=== PATIENT | female | born 1930 | race Caucasian/White ===

== ENCOUNTER 2017-01-03 06:00 | Day surgery (SDC) | payer BC ==
[2016-12-28 10:52] LABS: BASOPHILS 0.5 %; BASOPHILS ABSOLUTE 0.03 10/3/uL (0.0-0.16); EOSINOPHILS 1.1 %; EOSINOPHILS ABSOLUTE 0.06 10/3/uL (0.0-0.53); HEMATOCRIT 39.9 % (36.0-48.0); HEMOGLOBIN 12.9 g/dL (12.0-16.0); IMMATURE GRANULOCYTES 0.2 %; IMMATURE GRANULOCYTES ABSOLUTE 0.01 10/3/uL (0.0-0.11); LYMPHOCYTES 28.1 %; LYMPHOCYTES ABSOLUTE 1.59 10/3/uL (0.67-4.30); MEAN CORPUS HGB CONC 32.3 g/dL (32.0-36.0); MEAN CORPUSCULAR HEMOGLOB 30.4 pg (26.0-34.0); MEAN PLATELET VOLUME 10.8 fL (9.2-13.0); MONOCYTES 9.7 %; MONOCYTES ABSOLUTE 0.55 10/3/uL (0.21-1.20); NEUTROPHILS 60.4 %; NEUTROPHILS ABSOLUTE 3.41 10/3/uL (2.02-8.40); PLATELET COUNT 177 10/3/uL (150-400); RBC DISTRIBUTION WIDTH 14.6 % (12.0-16.0); RED CELL COUNT 4.25 10/6/uL (4.0-5.6); WHITE BLOOD CELLS 5.7 10/3/uL (4.5-10.5)
[2016-12-28 10:53] LABS: MANUAL DIFF NO %; MEAN CORPUSCULAR VOLUME 93.9 fL (80-100)
[2016-12-28 11:05] LABS: BUN (BLOOD UREA NITROGEN) 21 MG/DL (6-23); CHLORIDE, SERUM 105 MMOL/L (96-112); CO2 (CARBON DIOXIDE) 28 MMOL/L (24-34); CREATININE 1.06 MG/DL (0.55-1.02); GFR AFRICAN AMERICAN 56 ML/MIN (>=60); GFR NON AFRICAN AMERICAN 48 ML/MIN (>=60); GLUCOSE, SERUM 87 MG/DL (60-99); POTASSIUM, SERUM 4.3 MMOL/L (3.5-5.3); SODIUM, SERUM 139 MMOL/L (135-148)
--- NOTE | ~2017-01-03 | OP ---
Record Of [facility] [address] [facility] [place] [address] NAME: ALEX HILL : 34 STATUS : [facility]#: [id number] AGE: 86 ADM/REG DATE : 01/03/17 MR#: [id number] REPORT SERV DATE: 01/03/17 DICTATED BY: RONALDO PELLETIER DATE: 01/03/17 REPORT STATUS : Draft TRANSCRIBED BY: MODL DATE: 01/03/17 DATE OF PROCEDURE: 01/03/2017 PREOPERATIVE DIAGNOSIS: Postmenopausal bleeding. 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 SURGEON: Ronaldo ePlletier MD. PROCEDURE: Hysteroscopy, dilation and curettage with endocervical curettings. CPT code 28523. ANESTHESIA: General. EBL: 10 mL. DRAINS: Quevedo. FINDINGS: Neoplastic process noted in the lower uterine segment consistent with probable uterine cancer. The endocervical canal was visibly normal by endoscopy. PATHOLOGY: Endometrial curettings, endocervical curettings. COMPLICATIONS: None. POSTOPERATIVE PLAN: Extubated to PACU. PROCEDURE IN DETAIL: After informed consent was signed, the patient was taken to the operating room and placed in dorsal supine position where adequate general anesthesia was administered. She was then placed in dorsal lithotomy position in Uvaldo stirrups and prepped and draped in usual fashion, and a Quevedo catheter was placed. The uterus was sounded, hysteroscope was then placed through the endocervical canal and the uterus distended with appropriate media. Thickened endometrial tissue was noted throughout the lower uterine segment consistent with a neoplastic process. The hysteroscope was then removed and directed. Endometrial curettings were then performed with copious amounts of tissue being removed. The tissue was consistent with malignancy. Excellent hemostasis was noted. The hysteroscope was then placed back into the endocervix, and the endocervix was then again visualized and was found to be without gross evidence of disease. A Kevorkian curette was then used to perform endocervical curettings. The tenaculum was removed. Excellent hemostasis was noted. A bimanual and rectovaginal exams were performed, which were negative. The patient was placed back in dorsal supine position, awakened, extubated, and sent to the PACU in stable condition. TB/MODL Record Of [place] [address] [facility] [place] [address] NAME: ALEX HILL : 34 STATUS : [facility]#: [id number] AGE: 86 ADM/REG DATE : 01/03/17 MR#: [id number] REPORT SERV DATE: 01/03/17 DICTATED BY: RONALDO PELLETIER DATE: 01/03/17 REPORT STATUS : Draft TRANSCRIBED BY: MODL DATE: 01/03/17 Ronaldo Pelletier MD / [id number] CC: MD Shanell Younger M.D.
[~2017-01-03 06:00] MED LIST: ACET500CAP PO; ASAB PO; CALTRA600D PO; CARDCD180 PO; GLUCCHONDR PO; JANTOVEN4 MG PO; LAN125 PO; LIPITOR10 PO; VITAMIN D31000 UNIT PO
[2017-01-03 06:43] LABS: INTERNATIONAL NORMAL RATI 1.3 UNITS (-); PROTIME (NOT ORD) 16.2 SEC (12.0-14.5)
== END 2017-01-03 12:02 | disposition home or self-care (01) ==
LOC: SDC 06:00
PROVIDERS: Obstetrics & Gynecology Gynecology
PROC: 0UDB8ZX Extraction of Endometrium, Via Natural or Artificial Opening Endoscopic, Diagnostic (ICD-10-PCS; principal; 2017-01-03 07:45)
DX: C54.1 Malignant neoplasm of endometrium (principal); I10 Essential (primary) hypertension; I48.91 Unspecified atrial fibrillation; I44.7 Left bundle-branch block, unspecified; E11.9 Type 2 diabetes mellitus without complications; Z80.3 Family history of malignant neoplasm of breast; Z88.8 Allergy status to other drugs, medicaments and biological substances; Z79.01 Long term (current) use of anticoagulants; Z79.899 Other long term (current) drug therapy; Z98.890 Other specified postprocedural states
CPT/HCPCS: 71020; 80048; 82962; 85025; 85610; 88305; 93005; J0694; J2270; J2405; J3010